=== PATIENT | male | born 1960 | race Caucasian/White ===

== ENCOUNTER 2019-12-06 22:08 | Observation (INO) ==
[2019-12-06] MEDS ORDERED: Ondansetron 4 MG/2 ML VIAL IVP ONE (22:27)
[2019-12-06] MEDS: 0.9 % Sodium Chloride 1,000 ML IVC ONE ×2 (22:38→23:24)
[2019-12-06 22:44] LABS: Basophils # 0.1 K/mcL (0.0-0.2); Basophils % 0.5 %; Eosinophils # 0.1 K/mcL (0.0-0.6); Eosinophils % 0.5 %; Hematocrit 47.7 % (37.5-50.1); Hemoglobin 17.2 g/dL (12.9-16.9); Immature Granulocytes % 0.3 % (0-4); Lymphocytes # 1.4 K/mcL (0.6-4.6); Mean Corpuscular HGB Conc 36.1 g/dL (31.6-35.5); Mean Corpuscular Hemoglobin 29.2 pg (28.0-33.3); Mean Corpuscular Volume 80.8 fL (83.0-100.0); Mean Platelet Volume 10.8 fL (9.4-12.4); Monocytes # 0.6 K/mcL (0.0-1.3); Monocytes % 6.4 %; Neutrophils # 7.8 K/mcL (1.6-8.9); Platelet Count 177 K/mcL (140-400); Red Cell Distribution Width 12.3 % (11.5-14.5); Segmented Neutrophils % 78.3 %
[2019-12-06 22:56] LABS: Alanine Aminotransferase 13 Units/L (7-52); Albumin 5.4 g/dL (3.5-5.7); Albumin/Globulin Ratio 2.1 (1.1-2.2); Alkaline Phosphatase 67 Units/L (34-104); Aspartate Amino Transferase 11 Units/L (13-39); BUN/Creatinine Ratio 26 (6-26); Bilirubin,Total 1.4 mg/dL (0.3-1.0); Blood Urea Nitrogen 32 mg/dL (8-23); Calcium 10.6 mg/dL (8.6-10.3); Carbon Dioxide 29 mEq/L (23-29); Chloride 89 mEq/L (98-107); Globulin 2.6 g/dL (2.4-3.5); Glucose 443 mg/dL (70-105); Lipase 74 Units/L (11-82); Osmolality,Calculated 302 (280-300); Potassium 3.6 mEq/L (3.5-5.1); Sodium 133 mEq/L (136-145); eGFR For African Americans > 60 (> 60); eGFR For Non-African Americans > 60 (> 60)
[2019-12-06 23:01] LABS: Bilirubin,Urine Negative (Negative); Blood,Urine Trace-intact (Negative); Clarity,Urine Slightly Cloudy (Clear); Glucose,Urine (UA) 500 mg/dL (Normal); Ketones,Urine 40 mg/dL (Negative); Leukocyte Esterase,Urine Negative (Negative); Nitrite,Urine Negative (Negative); PH,Urine 5.5 pH Units (5.0-8.0); Protein,Urine 100 mg/dL (Neg-Trace); Specific Gravity,Urine 1.015 (1.010-1.025); Urobilinogen,Urine Normal (Normal)
[2019-12-06 23:12] LABS: Color,Urine Yellow (Yellow)
[2019-12-06 23:13] LABS: Amorphous Sediment,Urine Few per hpf (None-Few); RBC,Urine 0-3 per hpf (0-3)
[2019-12-06] MEDS ORDERED: 0.9 % Sodium Chloride 1,000 ML IVC ONE (23:20)
[2019-12-06] MEDS ORDERED: Insulin Regular, Human 100 UNIT/ML SQ ONE (23:20)
[2019-12-06] MEDS ORDERED: Insulin Human Regular 10 UNIT in 0.9 % Sodium Chloride 10 ML IV ONE (23:20)
[2019-12-06] MEDS ORDERED: *HR* Promethazine 25 MG/ML VIAL IVP ONE (23:22)
[2019-12-07] MEDS ORDERED: 0.9 % Sodium Chloride 1,000 ML IVC ONE ×2 (00:50→01:28)
[2019-12-07] MEDS ORDERED: *HR* Promethazine 25 MG/ML VIAL IVP ONE (01:19)
[2019-12-07] MEDS ORDERED: Naloxone 0.4 MG/ML INJ IVP PRN (01:28)
[2019-12-07] MEDS: 0.9 % Sodium Chloride 1,000 ML IVC SCH ×4 (02:01→21:28)
[2019-12-07] MEDS ORDERED: Dextrose Gel 15 GM/37.5 ML TUBE PO PRN ×2 (02:06)
[2019-12-07] MEDS ORDERED: D5% in Water 1,000 ML IVC PRN (02:06)
[2019-12-07] MEDS ORDERED: *HR* Dextrose 50 % in Water (Vial) 50 ML VIAL IVP PRN (02:06)
[2019-12-07] MEDS: Insulin LISPRO 300 UNITS/3 ML VIAL SQ SCH ×4 (02:53→17:12)
[2019-12-07] MEDS: Ondansetron 4 MG/2 ML VIAL IVP SCH ×5 (03:17→20:28)
[2019-12-07 05:18] LABS: Basophils % 0.3 %; Hematocrit 43.1 % (37.5-50.1); Immature Granulocytes % 0.4 % (0-4); Lymphocytes # 0.9 K/mcL (0.6-4.6); Lymphocytes % 6.1 %; Mean Corpuscular HGB Conc 35.7 g/dL (31.6-35.5); Mean Corpuscular Volume 81.2 fL (83.0-100.0); Mean Platelet Volume 10.8 fL (9.4-12.4); Monocytes # 0.4 K/mcL (0.0-1.3); Monocytes % 3.2 %; Neutrophils # 12.5 K/mcL (1.6-8.9); Platelet Count 139 K/mcL (140-400); Red Blood Count 5.31 M/mcL (4.19-5.50); Red Cell Distribution Width 12.2 % (11.5-14.5); White Blood Count 13.9 K/mcL (4.3-11.1)
[2019-12-07 05:23] LABS: Hemoglobin 15.4 g/dL (12.9-16.9)
[2019-12-07 05:32] LABS: Alanine Aminotransferase 12 Units/L (7-52); Albumin 4.5 g/dL (3.5-5.7); Albumin/Globulin Ratio 1.9 (1.1-2.2); Alkaline Phosphatase 58 Units/L (34-104); Aspartate Amino Transferase 12 Units/L (13-39); BUN/Creatinine Ratio 26 (6-26); Bilirubin,Total 1.1 mg/dL (0.3-1.0); Blood Urea Nitrogen 23 mg/dL (8-23); Calcium 8.9 mg/dL (8.6-10.3); Carbon Dioxide 26 mEq/L (23-29); Chloride 96 mEq/L (98-107); Globulin 2.4 g/dL (2.4-3.5); Glucose 263 mg/dL (70-105); Osmolality,Calculated 297 (280-300); Potassium 3.8 mEq/L (3.5-5.1); Sodium 137 mEq/L (136-145); Total Protein 6.9 g/dL (6.4-8.9); eGFR For African Americans > 60 (> 60); eGFR For Non-African Americans > 60 (> 60)
[2019-12-07] MEDS: *HR* Promethazine 25 MG/ML VIAL IVP PRN ×2 (06:10→12:34)
[2019-12-07 11:40] LABS: Estimated Average Glucose 321 mg/dl
[2019-12-07] MEDS ORDERED: lisinopriL 20 MG TABLET PO SCH (14:30)
[2019-12-07] MEDS: Famotidine 20 MG/2 ML VIAL IVP SCH ×2 (15:12→17:13)
[2019-12-07] MEDS: Metoclopramide 10 MG/2 ML VIAL IVP SCH (15:13)
[2019-12-07 16:24] LABS: BUN/Creatinine Ratio 22 (6-26); Blood Urea Nitrogen 21 mg/dL (8-23); Calcium 8.8 mg/dL (8.6-10.3); Carbon Dioxide 30 mEq/L (23-29); Chloride 99 mEq/L (98-107); Glucose 175 mg/dL (70-105); Magnesium 2.1 mg/dL (1.6-2.6); Osmolality,Calculated 291 (280-300); Potassium 3.5 mEq/L (3.5-5.1); Sodium 137 mEq/L (136-145); eGFR For African Americans > 60 (> 60); eGFR For Non-African Americans > 60 (> 60)
[2019-12-07] MEDS ORDERED: 0.9 % Sodium Chloride 500 ML IV ONE (16:40)
[2019-12-08] MEDS: Metoclopramide 10 MG/2 ML VIAL IVP SCH ×5 (01:10→23:47)
[2019-12-08] MEDS: Ondansetron 4 MG/2 ML VIAL IVP SCH ×4 (04:29→20:18)
[2019-12-08 05:14] LABS: Mean Corpuscular HGB Conc 35.5 g/dL (31.6-35.5); Mean Corpuscular Hemoglobin 29.2 pg (28.0-33.3); Mean Corpuscular Volume 82.1 fL (83.0-100.0); Mean Platelet Volume 10.5 fL (9.4-12.4); Platelet Count 132 K/mcL (140-400); Red Blood Count 4.63 M/mcL (4.19-5.50); Red Cell Distribution Width 12.2 % (11.5-14.5); White Blood Count 10.6 K/mcL (4.3-11.1)
[2019-12-08 05:15] LABS: Hemoglobin 13.5 g/dL (12.9-16.9)
[2019-12-08 05:29] LABS: BUN/Creatinine Ratio 22 (6-26); Blood Urea Nitrogen 24 mg/dL (8-23); Carbon Dioxide 24 mEq/L (23-29); Chloride 98 mEq/L (98-107); Glucose 213 mg/dL (70-105); Magnesium 1.9 mg/dL (1.6-2.6); Osmolality,Calculated 288 (280-300); Potassium 3.7 mEq/L (3.5-5.1); Sodium 134 mEq/L (136-145); eGFR For African Americans > 60 (> 60); eGFR For Non-African Americans > 60 (> 60)
[2019-12-08] MEDS: 0.9 % Sodium Chloride 1,000 ML IVC SCH ×3 (05:55→23:47)
[2019-12-08] MEDS: Famotidine 20 MG/2 ML VIAL IVP SCH ×2 (05:56→17:14)
[2019-12-08] MEDS: Insulin LISPRO 300 UNITS/3 ML VIAL SQ SCH ×3 (08:00→17:07)
[2019-12-08] MEDS ORDERED: lisinopriL 20 MG TABLET PO SCH (09:00)
[2019-12-08] MEDS ORDERED: Insulin DETEMIR 100 UNIT/ML per UNIT SQ ONE (09:00)
[2019-12-08] MEDS ORDERED: Mag Hydrox/Al Hydrox/Simeth 30 ML UDC PO PRN (10:34)
[2019-12-08 11:19] LABS: Chol/HDL Ratio 5.3 (0-4.9)
[2019-12-08] MEDS: Insulin DETEMIR 100 UNIT/ML X5UNITS SQ SCH (20:19)
[2019-12-08] MEDS: lisinopriL 20 MG TABLET PO SCH (20:19)
[2019-12-09] MEDS: Ondansetron 4 MG/2 ML VIAL IVP SCH ×2 (02:02→08:20)
[2019-12-09] MEDS: Famotidine 20 MG/2 ML VIAL IVP SCH (04:25)
[2019-12-09] MEDS: Metoclopramide 10 MG/2 ML VIAL IVP SCH ×2 (05:06→11:35)
[2019-12-09 05:31] LABS: Hematocrit 42.3 % (37.5-50.1); Mean Corpuscular HGB Conc 35.9 g/dL (31.6-35.5); Mean Corpuscular Hemoglobin 28.8 pg (28.0-33.3); Mean Corpuscular Volume 80.1 fL (83.0-100.0); Mean Platelet Volume 10.4 fL (9.4-12.4); Platelet Count 140 K/mcL (140-400); Red Blood Count 5.28 M/mcL (4.19-5.50); White Blood Count 8.8 K/mcL (4.3-11.1)
[2019-12-09 05:32] LABS: Hemoglobin 15.2 g/dL (12.9-16.9)
[2019-12-09 05:49] LABS: Alanine Aminotransferase 9 Units/L (7-52); Albumin 3.9 g/dL (3.5-5.7); Albumin/Globulin Ratio 1.8 (1.1-2.2); Alkaline Phosphatase 49 Units/L (34-104); Aspartate Amino Transferase 12 Units/L (13-39); BUN/Creatinine Ratio 24 (6-26); Bilirubin,Total 1.4 mg/dL (0.3-1.0); Blood Urea Nitrogen 21 mg/dL (8-23); Calcium 8.8 mg/dL (8.6-10.3); Carbon Dioxide 28 mEq/L (23-29); Chloride 98 mEq/L (98-107); Globulin 2.2 g/dL (2.4-3.5); Glucose 110 mg/dL (70-105); Magnesium 2.1 mg/dL (1.6-2.6); Osmolality,Calculated 284 (280-300); Potassium 3.2 mEq/L (3.5-5.1); Sodium 135 mEq/L (136-145); Total Protein 6.1 g/dL (6.4-8.9); eGFR For African Americans > 60 (> 60); eGFR For Non-African Americans > 60 (> 60)
[2019-12-09] MEDS: lisinopriL 20 MG TABLET PO SCH (08:19)
[2019-12-09] MEDS: 0.9 % Sodium Chloride 1,000 ML IVC SCH (08:22)
[2019-12-09] MEDS: Insulin LISPRO 300 UNITS/3 ML VIAL SQ SCH ×2 (08:23→11:37)
[2019-12-09] MEDS ORDERED: lisinopriL 20 MG TABLET PO SCH (09:00)
[2019-12-09] MEDS ORDERED: 0.9 % Sodium Chloride w KCl 40 MEQ/1,000 ML MLS IVC SCH (09:15)
[2019-12-09] MEDS: Insulin DETEMIR 100 UNIT/ML X5UNITS SQ SCH (09:21)
[2019-12-09] MEDS ORDERED: Isovue-370 500 ML BOTTLE IVP ONE (09:23)
[2019-12-09 11:51] VITALS: BP 160/90
== END 2019-12-09 15:22 | disposition short-term general hospital (02) ==
LOC: EMEROOGRE 22:08 → INPGRE 22:08 → SUATTDRO 12-07 01:30 → INPGRE 12-07 01:48
PROVIDERS: ADMIT Student in an Organized Health Care Education/Training Program; ATTEND Family Medicine

== ENCOUNTER 2020-04-24 16:15 | Observation (INO) ==
[2020-04-24] MEDS ORDERED: 0.9 % Sodium Chloride 1,000 ML IVC ONE ×2 (16:21→17:48)
[2020-04-24] MEDS ORDERED: Ondansetron 4 MG/2 ML VIAL IVP ONE ×2 (17:02→22:15)
[2020-04-24] MEDS ORDERED: Ketorolac 30 MG/ML VIAL IVP ONE (17:03)
[2020-04-24 17:14] LABS: Basophils % 0.4 %; Eosinophils % 0.1 %; Hematocrit 42.8 % (37.5-50.1); Immature Granulocytes % 0.4 % (0-4); Lymphocytes # 0.9 K/mcL (0.6-4.6); Mean Corpuscular Hemoglobin 28.6 pg (28.0-33.3); Mean Corpuscular Volume 81.5 fL (83.0-100.0); Mean Platelet Volume 10.1 fL (9.4-12.4); Monocytes # 0.5 K/mcL (0.0-1.3); Monocytes % 5.2 %; Neutrophils # 8.4 K/mcL (1.6-8.9); Platelet Count 165 K/mcL (140-400); Red Blood Count 5.25 M/mcL (4.19-5.50); Red Cell Distribution Width 12.5 % (11.5-14.5); Segmented Neutrophils % 84.9 %; White Blood Count 9.9 K/mcL (4.3-11.1)
[2020-04-24 17:17] LABS: VBG HCO3 24 mEq/L (21-27); VBG PCO2 44 mmHg (41-51); VBG PH 7.34 pH Units (7.32-7.42); VBG PO2 28 mmHg (25-50)
[2020-04-24 17:17] LABS: INR 1.1; Prothrombin Time 12.2 Seconds (9.4-12.1)
[2020-04-24] MEDS ORDERED: Isovue-370 500 ML BOTTLE IVP ONE (17:28)
[2020-04-24 17:29] LABS: Alanine Aminotransferase 11 Units/L (7-52); Albumin 4.7 g/dL (3.5-5.7); Albumin/Globulin Ratio 1.7 (1.1-2.2); Alkaline Phosphatase 62 Units/L (34-104); Aspartate Amino Transferase 10 Units/L (13-39); BUN/Creatinine Ratio 21 (6-26); Bilirubin,Direct 0.1 mg/dL (0.0-0.2); Bilirubin,Indirect 0.9 mg/dL (0.0-1.0); Blood Urea Nitrogen 20 mg/dL (8-23); Calcium 9.4 mg/dL (8.6-10.3); Carbon Dioxide 23 mEq/L (23-29); Chloride 97 mEq/L (98-107); Globulin 2.7 g/dL (2.4-3.5); Glucose 297 mg/dL (70-105); Lipase 5 Units/L (11-82); Osmolality,Calculated 290 (280-300); Potassium 4.1 mEq/L (3.5-5.1); Sodium 133 mEq/L (136-145); Total Protein 7.4 g/dL (6.4-8.9); eGFR For African Americans > 60 (> 60); eGFR For Non-African Americans > 60 (> 60)
[2020-04-24 17:40] LABS: Bilirubin,Urine Negative (Negative); Blood,Urine Small (Negative); Clarity,Urine Clear (Clear); Color,Urine Yellow (Yellow); Glucose,Urine (UA) 500 mg/dL (Normal); Ketones,Urine 80 mg/dL (Negative); Leukocyte Esterase,Urine Negative (Negative); Nitrite,Urine Negative (Negative); Protein,Urine 100 mg/dL (Neg-Trace); Specific Gravity,Urine 1.025 (1.010-1.025); Urobilinogen,Urine Normal (Normal)
[2020-04-24 17:44] LABS: RBC,Urine 0-3 per hpf (0-3)
[2020-04-24] MEDS ORDERED: Azithromycin 250 MG TABLET PO ONE (21:51)
[2020-04-24] MEDS ORDERED: Ondansetron 4 MG/2 ML VIAL ONE (22:16)
[2020-04-24] MEDS ORDERED: Acetaminophen 325 MG TABLET PO PRN (22:24)
[2020-04-24] MEDS ORDERED: Naloxone 0.4 MG/ML INJ IVP PRN (22:24)
[2020-04-24] MEDS ORDERED: D5% in Water 1,000 ML IVC PRN (22:26)
[2020-04-24] MEDS ORDERED: *HR* Dextrose 50 % in Water (Vial) 50 ML VIAL IVP PRN (22:26)
[2020-04-24] MEDS ORDERED: Dextrose Gel 15 GM/37.5 ML TUBE PO PRN ×2 (22:26)
[2020-04-24] MEDS ORDERED: Ipratropium/Albuterol Neb 3 ML IH PRN (22:27)
[2020-04-24] MEDS ORDERED: Insulin LISPRO 300 UNITS/3 ML VIAL SUBQ SCH (22:30)
[2020-04-24] MEDS: 0.9 % Sodium Chloride 1,000 ML IVC SCH (23:50)
[2020-04-25] MEDS: Insulin LISPRO 300 UNITS/3 ML VIAL SUBQ SCH ×4 (00:42→17:04)
[2020-04-25] MEDS: Ondansetron ODT 4 MG TAB.RAPDIS SL PRN ×2 (01:21→09:15)
[2020-04-25 05:25] LABS: Basophils % 0.4 %; Eosinophils % 0.1 %; Hematocrit 35.8 % (37.5-50.1); Immature Granulocytes % 0.4 % (0-4); Lymphocytes # 1.3 K/mcL (0.6-4.6); Lymphocytes % 13.4 %; Mean Corpuscular HGB Conc 35.2 g/dL (31.6-35.5); Mean Corpuscular Hemoglobin 28.4 pg (28.0-33.3); Mean Corpuscular Volume 80.8 fL (83.0-100.0); Mean Platelet Volume 10.6 fL (9.4-12.4); Monocytes # 0.7 K/mcL (0.0-1.3); Monocytes % 7.1 %; Neutrophils # 7.6 K/mcL (1.6-8.9); Platelet Count 147 K/mcL (140-400); Red Blood Count 4.43 M/mcL (4.19-5.50); Red Cell Distribution Width 12.5 % (11.5-14.5); Segmented Neutrophils % 78.6 %; White Blood Count 9.6 K/mcL (4.3-11.1)
[2020-04-25 05:26] LABS: Hemoglobin 12.6 g/dL (12.9-16.9)
[2020-04-25 05:39] LABS: Alanine Aminotransferase 8 Units/L (7-52); Albumin 3.5 g/dL (3.5-5.7); Albumin/Globulin Ratio 1.8 (1.1-2.2); Alkaline Phosphatase 45 Units/L (34-104); Aspartate Amino Transferase 8 Units/L (13-39); BUN/Creatinine Ratio 20 (6-26); Bilirubin,Total 0.8 mg/dL (0.3-1.0); Blood Urea Nitrogen 23 mg/dL (8-23); Calcium 8.4 mg/dL (8.6-10.3); Carbon Dioxide 22 mEq/L (23-29); Chloride 102 mEq/L (98-107); Chol/HDL Ratio 4.9 (0-4.9); Cholesterol 204 mg/dL (< 200); Glucose 169 mg/dL (70-105); HDL Cholesterol 42 mg/dL (40-59); LDL Cholesterol,Calculated 141 mg/dL (< 100); Magnesium 1.8 mg/dL (1.6-2.6); Osmolality,Calculated 286 (280-300); Phosphorous 3.4 mg/dL (2.7-4.5); Potassium 3.7 mEq/L (3.5-5.1); Sodium 134 mEq/L (136-145); Total Protein 5.5 g/dL (6.4-8.9); Triglycerides 106 mg/dL (< 150); eGFR For African Americans > 60 (> 60); eGFR For Non-African Americans > 60 (> 60)
[2020-04-25] MEDS: *HR* Enoxaparin 40 MG/0.4 ML SYRINGE SQ SCH (06:06)
[2020-04-25 06:08] LABS: Thyroid Stimulating Hormone 0.905 mcIU/mL (0.340-5.600)
[2020-04-25] MEDS: Azithromycin 500 MG in 0.9 % Sodium Chloride 250 ML IVPB SCH (09:15)
[2020-04-25] MEDS ORDERED: Ondansetron ODT 4 MG TAB.RAPDIS SL PRN (09:34)
[2020-04-25] MEDS ORDERED: Famotidine 20 MG/2 ML VIAL IVP ONE (09:34)
[2020-04-25] MEDS ORDERED: Insulin LISPRO 300 UNITS/3 ML VIAL SUBQ SCH (09:37)
[2020-04-25] MEDS ORDERED: *HR* Promethazine 25 MG/ML VIAL IM PRN (09:37)
[2020-04-25] MEDS ORDERED: Prochlorperazine 10 MG/2 ML VIAL IVP PRN (09:40)
[2020-04-25 11:24] LABS: Estimated Average Glucose 326 mg/dl
[2020-04-25] MEDS: Pantoprazole 40 MG VIAL IVP SCH ×2 (11:38→17:04)
[2020-04-25] MEDS: Sucralfate 1 GM TABLET PO SCH ×3 (11:51→23:01)
[2020-04-25] MEDS ORDERED: Ondansetron 4 MG/2 ML VIAL IVP PRN (11:53)
[2020-04-25] MEDS: 0.9 % Sodium Chloride 1,000 ML IVC SCH ×2 (11:59→22:11)
[2020-04-25] MEDS: Metoclopramide 10 MG/2 ML VIAL IVP SCH ×3 (15:49→23:01)
[2020-04-25 16:56] LABS: Bilirubin,Urine Negative (Negative); Blood,Urine Trace-lysed (Negative); Clarity,Urine Clear (Clear); Color,Urine Yellow (Yellow); Glucose,Urine (UA) 500 mg/dL (Normal); Ketones,Urine 80 mg/dL (Negative); Leukocyte Esterase,Urine Negative (Negative); Nitrite,Urine Negative (Negative); PH,Urine 5.5 pH Units (5.0-8.0); Protein,Urine 100 mg/dL (Neg-Trace); Specific Gravity,Urine >= 1.030 (1.010-1.025); Urobilinogen,Urine Normal (Normal)
[2020-04-25 17:02] LABS: Bacteria,Urine Few per hpf (None-Few); Mucus,Urine Few per lpf (None-Few); RBC,Urine 0-3 per hpf (0-3)
[2020-04-25] MEDS ORDERED: Metoclopramide 10 MG/2 ML VIAL IVP SCH (18:00)
[2020-04-25 21:01] LABS: Adenovirus Not Detected (Not Detect); Bordetella Pertussis Not Detected (Not Detect); Chlamydophila pneumoniae Not Detected (Not Detect); Coronavirus 229E Not Detected (Not Detect); Coronavirus HKU1 Not Detected (Not Detect); Coronavirus NL63 Not Detected (Not Detect); Coronavirus OC43 Not Detected (Not Detect); Human Metapneumovirus Not Detected (Not Detect); Human Rhinovirus/Enterovirus Not Detected (Not Detect); Influenza A Subtype 2009 H1 Not Detected (Not Detect); Influenza B Not Detected (Not Detect); Mycoplasma pneumoniae Not Detected (Not Detect); Parainfluenza Virus 1 Not Detected (Not Detect); Parainfluenza Virus 2 Not Detected (Not Detect); Parainfluenza Virus 3 Not Detected (Not Detect); Parainfluenza Virus 4 Not Detected (Not Detect); Respiratory Syncytial Virus Not Detected (Not Detect); SARS-CoV-2 Not Detected (Not Detect)
[2020-04-25] MEDS: lisinopriL 10 MG TABLET PO SCH (23:02)
[2020-04-26] MEDS: Pantoprazole 40 MG VIAL IVP SCH (05:28)
[2020-04-26] MEDS: Metoclopramide 10 MG/2 ML VIAL IVP SCH ×2 (05:28→11:31)
[2020-04-26] MEDS: *HR* Enoxaparin 40 MG/0.4 ML SYRINGE SQ SCH (05:29)
[2020-04-26] MEDS: 0.9 % Sodium Chloride 1,000 ML IVC SCH (08:07)
[2020-04-26] MEDS: Azithromycin 500 MG in 0.9 % Sodium Chloride 250 ML IVPB SCH (08:08)
[2020-04-26] MEDS: lisinopriL 10 MG TABLET PO SCH (08:10)
[2020-04-26] MEDS: Insulin LISPRO 300 UNITS/3 ML VIAL SUBQ SCH ×2 (08:10→12:03)
[2020-04-26] MEDS: Sucralfate 1 GM TABLET PO SCH ×2 (08:10→11:31)
[2020-04-26] MEDS ORDERED: lisinopriL 10 MG TABLET PO SCH (09:00)
[2020-04-26 10:43] VITALS: BP 148/77
[2020-04-26 11:35] LABS: Alanine Aminotransferase 9 Units/L (7-52); Albumin 3.9 g/dL (3.5-5.7); Albumin/Globulin Ratio 1.8 (1.1-2.2); Alkaline Phosphatase 50 Units/L (34-104); Amylase 22 Units/L (29-103); Aspartate Amino Transferase 12 Units/L (13-39); BUN/Creatinine Ratio 18 (6-26); Bilirubin,Total 1.2 mg/dL (0.3-1.0); Blood Urea Nitrogen 16 mg/dL (8-23); Calcium 8.8 mg/dL (8.6-10.3); Carbon Dioxide 20 mEq/L (23-29); Chloride 99 mEq/L (98-107); Globulin 2.2 g/dL (2.4-3.5); Glucose 157 mg/dL (70-105); Lipase 11 Units/L (11-82); Magnesium 1.8 mg/dL (1.6-2.6); Osmolality,Calculated 280 (280-300); Potassium 3.4 mEq/L (3.5-5.1); Sodium 133 mEq/L (136-145); Total Protein 6.1 g/dL (6.4-8.9); eGFR For African Americans > 60 (> 60); eGFR For Non-African Americans > 60 (> 60)
[2020-04-26 13:24] LABS: Hemoglobin 15.1 g/dL (12.9-16.9); Mean Corpuscular Hemoglobin 28.7 pg (28.0-33.3); Mean Corpuscular Volume 79.8 fL (83.0-100.0); Mean Platelet Volume 10.2 fL (9.4-12.4); Platelet Count 172 K/mcL (140-400); Red Blood Count 5.26 M/mcL (4.19-5.50); Red Cell Distribution Width 12.3 % (11.5-14.5)
== END 2020-04-26 13:15 | disposition short-term general hospital (02) ==
LOC: INPGRE 16:15 → EMEROOGRE 16:15 → SUATTDRO 23:20 → INPGRE 04-25 00:15
PROVIDERS: ADMIT Student in an Organized Health Care Education/Training Program; ATTEND Family Medicine